=== PATIENT | female | born 1965 | race Caucasian/White ===

== ENCOUNTER 2016-12-26 23:50 | Emergency (ER) | payer MEDICARE, OTHER, SELFPAY ==
[2016-12-26 21:48] LABS: BASOPHILS 0.6 %; BASOPHILS ABSOLUTE 0.04 10/3/uL (0.0-0.16); EOSINOPHILS 4.9 %; HEMATOCRIT 39.3 % (36.0-48.0); IMMATURE GRANULOCYTES 0.3 %; IMMATURE GRANULOCYTES ABSOLUTE 0.02 10/3/uL (0.0-0.11); LYMPHOCYTES 43.5 %; LYMPHOCYTES ABSOLUTE 2.68 10/3/uL (0.67-4.30); MEAN CORPUS HGB CONC 33.1 g/dL (32.0-36.0); MEAN CORPUSCULAR HEMOGLOB 30.7 pg (26.0-34.0); MEAN CORPUSCULAR VOLUME 92.7 fL (80-100); MEAN PLATELET VOLUME 9.5 fL (9.2-13.0); MONOCYTES ABSOLUTE 0.37 10/3/uL (0.21-1.20); NEUTROPHILS 44.7 %; NEUTROPHILS ABSOLUTE 2.75 10/3/uL (2.02-8.40); PLATELET COUNT 268 10/3/uL (150-400); RBC DISTRIBUTION WIDTH 12.9 % (12.0-16.0); RED CELL COUNT 4.24 10/6/uL (4.0-5.6)
[2016-12-26 21:49] LABS: ER CBC TAT 0 Hrs 05 Mins; MANUAL DIFF NO %; WHITE BLOOD CELLS 6.2 10/3/uL (4.5-10.5)
[2016-12-26 21:56] LABS: INTERNATIONAL NORMAL RATI 1.1 UNITS (-); PARTIAL THROMBO TIME 30.2 SEC (22.5-37.2); PROTIME (NOT ORD) 14.1 SEC (12.0-14.5)
[2016-12-26 22:05] LABS: BUN (BLOOD UREA NITROGEN) 16 MG/DL (6-23); CALCIUM, SERUM 9.1 MG/DL (8.5-10.4); CHEST PAIN PROFILE TAT 0 Hrs 21 Mins; CHLORIDE, SERUM 104 MMOL/L (96-112); CO2 (CARBON DIOXIDE) 27 MMOL/L (24-34); CREATININE 0.95 MG/DL (0.55-1.02); GFR AFRICAN AMERICAN 81 ML/MIN (>=60); GFR NON AFRICAN AMERICAN 70 ML/MIN (>=60); GLUCOSE, SERUM 133 MG/DL (60-99); POTASSIUM, SERUM 3.2 MMOL/L (3.5-5.3); SODIUM, SERUM 140 MMOL/L (135-148); TROPONIN I <0.02 NG/ML (<0.05)
[~2016-12-26 23:50] MED LIST: ABILIFY5 PO; ACIPHEX PO; ALLEGRA180 PO; AMIT25 PO; ASAB PO; BENTYL10 PO; CLARIT10 PO; CO Q-10100 MG PO; CO Q-10200 MG PO; CRESTOR10 PO; CRESTOR20 MG PO; DEPAK250ER PO; DEPAKOT500 PO; DEPAKOTEER PO; DIL4TAB PO; FENOGLIDE120 MG PO; HYDROCHLOROT25 MG PO; KLONO1 PO; KLONO5 PO; KLOR-CON M2020 MEQ PO; L40 PO; LAMICTAL150 MG PO; LOPID6 PO; MEPERITAB50 MG PO; METHOC750B PO; MULTIVITAMI1 PO; NEXIUM40 PO; PR12.5 PO; PROAIR HFA INH; SINGULAIR1 PO; SYN075 PO; SYN1 PO; TOPAMAX100 PO; TOPAMAX200 MG PO; TOPAMAX50 MG PO; TOPXL50 PO; VALTREX1 GM PO; VERELAN240 MG PO; VITAMIN B-2100 MG PO; VITAMIN D W/CALCIUM PO; VITAMIN D31000 UNIT PO; ZETIA PO; ZOCOR20 PO
[2017-02-22] MEDS ORDERED: V5 PO (12:57)
[2017-02-22] MEDS ORDERED: DIL4TAB PO (12:57)
[2017-02-28] MEDS ORDERED: ACET500CAP PO (15:26)
== END 2016-12-27 03:00 | disposition home or self-care (01) ==
LOC: ER 23:50
PROVIDERS: Hospitalist
DX: R42 Dizziness and giddiness (principal); E87.6 Hypokalemia; F41.9 Anxiety disorder, unspecified; K21.9 Gastro-esophageal reflux disease without esophagitis; Z88.5 Allergy status to narcotic agent; Z88.8 Allergy status to other drugs, medicaments and biological substances; Z79.899 Other long term (current) drug therapy; Z79.82 Long term (current) use of aspirin
CPT/HCPCS: 71020; 80048; 83735; 84484; 85025; 85610; 85730; 93005; 96372; 99285; A9270-GY

== ENCOUNTER 2017-02-08 18:55 | Emergency (ER) | payer MEDICARE, SELFPAY, OTHER ==
[2017-02-08 20:00] LABS: BASOPHILS 0.6 %; BASOPHILS ABSOLUTE 0.04 10/3/uL (0.0-0.16); EOSINOPHILS 4.5 %; HEMATOCRIT 37.6 % (36.0-48.0); HEMOGLOBIN 12.7 g/dL (12.0-16.0); IMMATURE GRANULOCYTES 0.2 %; IMMATURE GRANULOCYTES ABSOLUTE 0.01 10/3/uL (0.0-0.11); MANUAL DIFF NO %; MEAN CORPUS HGB CONC 33.8 g/dL (32.0-36.0); MEAN CORPUSCULAR HEMOGLOB 29.9 pg (26.0-34.0); MEAN CORPUSCULAR VOLUME 88.5 fL (80-100); MEAN PLATELET VOLUME 9.5 fL (9.2-13.0); MONOCYTES 5.9 %; MONOCYTES ABSOLUTE 0.39 10/3/uL (0.21-1.20); NEUTROPHILS 46.8 %; NEUTROPHILS ABSOLUTE 3.12 10/3/uL (2.02-8.40); PLATELET COUNT 290 10/3/uL (150-400); RBC DISTRIBUTION WIDTH 12.6 % (12.0-16.0); RED CELL COUNT 4.25 10/6/uL (4.0-5.6); WHITE BLOOD CELLS 6.7 10/3/uL (4.5-10.5)
[2017-02-08 20:06] LABS: INTERNATIONAL NORMAL RATI 1.1 UNITS (-); PARTIAL THROMBO TIME 29.8 SEC (22.5-37.2); PROTIME (NOT ORD) 14.1 SEC (12.0-14.5)
[2017-02-08 20:16] LABS: CALCIUM, SERUM 9.3 MG/DL (8.5-10.4); CHEST PAIN PROFILE TAT 0 Hrs 22 Mins; CHLORIDE, SERUM 108 MMOL/L (96-112); CO2 (CARBON DIOXIDE) 25 MMOL/L (24-34); CREATININE 1.02 MG/DL (0.55-1.02); GFR AFRICAN AMERICAN 74 ML/MIN (>=60); GFR NON AFRICAN AMERICAN 64 ML/MIN (>=60); GLUCOSE, SERUM 108 MG/DL (60-99); POTASSIUM, SERUM 3.5 MMOL/L (3.5-5.3); SODIUM, SERUM 142 MMOL/L (135-148); TROPONIN I <0.02 NG/ML (<0.05)
[2017-02-08 20:18] LABS: BUN (BLOOD UREA NITROGEN) 22 MG/DL (6-23)
[2017-02-22] MEDS ORDERED: V5 PO (12:57)
[2017-02-22] MEDS ORDERED: DIL4TAB PO (12:57)
[2017-02-28] MEDS ORDERED: ACET500CAP PO (15:26)
== END 2017-02-08 22:58 | disposition home or self-care (01) ==
LOC: ER 18:55
PROVIDERS: Emergency Medicine
DX: G43.909 Migraine, unspecified, not intractable, without status migrainosus (principal); K21.9 Gastro-esophageal reflux disease without esophagitis; F32.9 Major depressive disorder, single episode, unspecified; F41.9 Anxiety disorder, unspecified; Z88.5 Allergy status to narcotic agent; Z88.8 Allergy status to other drugs, medicaments and biological substances; Z79.82 Long term (current) use of aspirin; Z79.899 Other long term (current) drug therapy
CPT/HCPCS: 71020; 80048; 83735; 84484; 85025; 85610; 85730; 93005; 96374; 96375; 99285; J1170; J2550

== ENCOUNTER 2017-02-20 22:00 | Emergency (ER) | payer MEDICARE, OTHER ==
[2017-02-20 22:28] LABS: BASOPHILS 0.4 %; BASOPHILS ABSOLUTE 0.03 10/3/uL (0.0-0.16); EOSINOPHILS 5.6 %; EOSINOPHILS ABSOLUTE 0.39 10/3/uL (0.0-0.53); ER CBC TAT 0 Hrs 15 Mins; HEMATOCRIT 38.6 % (36.0-48.0); HEMOGLOBIN 12.9 g/dL (12.0-16.0); IMMATURE GRANULOCYTES 0.4 %; IMMATURE GRANULOCYTES ABSOLUTE 0.03 10/3/uL (0.0-0.11); LYMPHOCYTES 51.9 %; LYMPHOCYTES ABSOLUTE 3.62 10/3/uL (0.67-4.30); MEAN CORPUS HGB CONC 33.4 g/dL (32.0-36.0); MEAN CORPUSCULAR HEMOGLOB 29.9 pg (26.0-34.0); MEAN CORPUSCULAR VOLUME 89.6 fL (80-100); MEAN PLATELET VOLUME 9.7 fL (9.2-13.0); MONOCYTES 8.3 %; MONOCYTES ABSOLUTE 0.58 10/3/uL (0.21-1.20); NEUTROPHILS 33.4 %; NEUTROPHILS ABSOLUTE 2.33 10/3/uL (2.02-8.40); PLATELET COUNT 305 10/3/uL (150-400); RBC DISTRIBUTION WIDTH 12.3 % (12.0-16.0); RED CELL COUNT 4.31 10/6/uL (4.0-5.6)
[2017-02-20 22:29] LABS: MANUAL DIFF NO %
[2017-02-20 22:44] LABS: A/G RATIO 1.3 (0.7-1.9); ALBUMIN 4.2 G/DL (3.5-5.0); ALKALINE PHOSPHATASE 49 U/L (45-117); BUN (BLOOD UREA NITROGEN) 21 MG/DL (6-23); CALCIUM, SERUM 9.3 MG/DL (8.5-10.4); CHLORIDE, SERUM 104 MMOL/L (96-112); CO2 (CARBON DIOXIDE) 32 MMOL/L (24-34); CREATININE 0.91 MG/DL (0.55-1.02); GFR AFRICAN AMERICAN 85 ML/MIN (>=60); GFR NON AFRICAN AMERICAN 73 ML/MIN (>=60); GLOBULIN 3.3 G/DL (2.5-4.1); GLUCOSE, SERUM 95 MG/DL (60-99); POTASSIUM, SERUM 3.2 MMOL/L (3.5-5.3); SGOT(AST) 23 U/L (5-40); SGPT(ALT) 19 U/L (5-65); SODIUM, SERUM 138 MMOL/L (135-148); TOTAL BILIRUBIN 0.4 MG/DL (0-1.2); TOTAL PROTEIN 7.5 G/DL (6.0-8.5); TROPONIN I <0.02 NG/ML (<0.05)
[2017-02-22] MEDS ORDERED: DIL4TAB PO (12:57)
[2017-02-22] MEDS ORDERED: V5 PO (12:57)
[2017-02-28] MEDS ORDERED: ACET500CAP PO (15:26)
== END 2017-02-20 23:31 | disposition home or self-care (01) ==
LOC: ER 22:00
PROVIDERS: Emergency Medicine
DX: G43.909 Migraine, unspecified, not intractable, without status migrainosus (principal); R55 Syncope and collapse; Z88.5 Allergy status to narcotic agent; Z88.8 Allergy status to other drugs, medicaments and biological substances; Z79.899 Other long term (current) drug therapy
CPT/HCPCS: 80053; 84484; 85025; 93005; 99284; J1170; J2405

== ENCOUNTER 2017-03-01 04:39 | Observation (INO) | payer MEDICARE, OTHER ==
--- NOTE | ~2017-03-01 | OP ---
Record Of Operation [facility] [address] [place]. [address] NAME: RAVEN GOLDSMITH : 67 STATUS : ADM Faisal PAT#: [id number] AGE: 52 ADM/REG DATE : 03/01/17 MR#: [id number] REPORT SERV DATE: 03/02/17 DICTATED BY: ELISABETH DE II DATE: 03/02/17 REPORT STATUS : Draft TRANSCRIBED BY: MODJulio Cesar DATE: 03/02/17 DATE OF PROCEDURE: 03/01/2017 PREOPERATIVE DIAGNOSES: 1. Dysphagia. 2. Retropharyngeal seroma with hematoma. POSTOPERATIVE DIAGNOSES: 1. Dysphagia. 2. Retropharyngeal seroma with hematoma. PROCEDURE: Evacuation of retropharyngeal cervical hematoma and seroma. SURGEON: Elisabeth De M.D. FLUIDS: 700 mL LR. ESTIMATED BLOOD LOSS: 5 mL, 1 drain, no complications. FINDINGS: Large seroma with minimal hematoma component. After informed consent was obtained, the patient was brought to the operating room at her request and general anesthesia achieved. She was placed in supine position. The neck was prepped and draped in a sterile fashion. The incision was then reincised. There was no evidence of erythema or purulence around the incision incidentally. Once we then identified the platysma, the sutures were removed. We then encountered a very large retropharyngeal seroma. The straw-colored fluid was then evacuated followed by irrigation. A deep drain was placed following confirmation of hemostasis. The standard closure was performed. The patient was extubated and transferred to PACU in stable condition. SHANIKA/SKINNY Elisabeth De II, M.D. / [id number] CC: Pam Zuniga II, M.D. Thomas J. Holcomb, NP
[~2017-03-01 04:39] MED LIST changes: +ACET500CAP PO; +V5 PO
== END 2017-03-03 14:22 | disposition home or self-care (01) ==
LOC: SDC 04:39 → 3SO 09:55
PROVIDERS: Orthopaedic Surgery
PROC: 0C9M0ZZ Drainage of Pharynx, Open Approach (ICD-10-PCS; principal; 2017-03-01 05:45)
DX: J95.863 Postprocedural seroma of a respiratory system organ or structure following other procedure (principal); I10 Essential (primary) hypertension; F41.9 Anxiety disorder, unspecified; J45.909 Unspecified asthma, uncomplicated; F32.9 Major depressive disorder, single episode, unspecified; K21.9 Gastro-esophageal reflux disease without esophagitis; G43.409 Hemiplegic migraine, not intractable, without status migrainosus; M19.90 Unspecified osteoarthritis, unspecified site; E78.00 Pure hypercholesterolemia, unspecified; M79.7 Fibromyalgia; I34.1 Nonrheumatic mitral (valve) prolapse; G47.33 Obstructive sleep apnea (adult) (pediatric); Z88.1 Allergy status to other antibiotic agents; Z88.5 Allergy status to narcotic agent; Z88.8 Allergy status to other drugs, medicaments and biological substances; Z90.710 Acquired absence of both cervix and uterus; Z90.89 Acquired absence of other organs; Z99.81 Dependence on supplemental oxygen; Z98.41 Cataract extraction status, right eye; Z98.42 Cataract extraction status, left eye; Z98.890 Other specified postprocedural states
CPT/HCPCS: 96374; 96375; 96376; A9270-GY; G0378; J0330; J0690; J1170; J2250; J2405; J3010

== ENCOUNTER 2017-03-08 21:00 | Emergency (ER) | payer MEDICARE, OTHER ==
[2017-03-08 20:48] LABS: BASOPHILS 0.2 %; BASOPHILS ABSOLUTE 0.01 10/3/uL (0.0-0.16); EOSINOPHILS 4.9 %; EOSINOPHILS ABSOLUTE 0.25 10/3/uL (0.0-0.53); ER CBC TAT 0 Hrs 05 Mins; HEMATOCRIT 33.6 % (36.0-48.0); HEMOGLOBIN 10.7 g/dL (12.0-16.0); IMMATURE GRANULOCYTES 0.2 %; IMMATURE GRANULOCYTES ABSOLUTE 0.01 10/3/uL (0.0-0.11); LYMPHOCYTES 54.6 %; MEAN CORPUS HGB CONC 31.8 g/dL (32.0-36.0); MEAN CORPUSCULAR HEMOGLOB 28.9 pg (26.0-34.0); MEAN CORPUSCULAR VOLUME 90.8 fL (80-100); MONOCYTES 9.9 %; MONOCYTES ABSOLUTE 0.51 10/3/uL (0.21-1.20); NEUTROPHILS 30.2 %; NEUTROPHILS ABSOLUTE 1.55 10/3/uL (2.02-8.40); PLATELET COUNT 392 10/3/uL (150-400); WHITE BLOOD CELLS 5.1 10/3/uL (4.5-10.5)
[2017-03-08 20:49] LABS: MANUAL DIFF NO %
[2017-03-08 20:57] LABS: INTERNATIONAL NORMAL RATI 1.1 UNITS (-); PARTIAL THROMBO TIME 32.3 SEC (22.5-37.2); PROTIME (NOT ORD) 13.7 SEC (12.0-14.5)
[2017-03-08 21:06] LABS: BUN (BLOOD UREA NITROGEN) 15 MG/DL (6-23); CHEST PAIN PROFILE TAT 0 Hrs 23 Mins; CHLORIDE, SERUM 106 MMOL/L (96-112); CO2 (CARBON DIOXIDE) 28 MMOL/L (24-34); CREATININE 0.77 MG/DL (0.55-1.02); GFR AFRICAN AMERICAN 104 ML/MIN (>=60); GFR NON AFRICAN AMERICAN 89 ML/MIN (>=60); GLUCOSE, SERUM 94 MG/DL (60-99); POTASSIUM, SERUM 3.5 MMOL/L (3.5-5.3); SODIUM, SERUM 140 MMOL/L (135-148); TROPONIN I <0.02 NG/ML (<0.05)
== END 2017-03-09 03:03 | disposition home or self-care (01) ==
LOC: ER 21:00
PROVIDERS: Hospitalist
DX: T81.4XXA Infection following a procedure, initial encounter (principal); L02.11 Cutaneous abscess of neck; G89.29 Other chronic pain; Z88.5 Allergy status to narcotic agent; Z88.8 Allergy status to other drugs, medicaments and biological substances; Z79.891 Long term (current) use of opiate analgesic; Z79.899 Other long term (current) drug therapy
CPT/HCPCS: 70491; 71020; 80048; 83735; 84484; 85025; 85610; 85730; 87040; 93005; 99285; J2360; Q9967